=== PATIENT | female | born 1985 | race Caucasian/White ===

== ENCOUNTER 2019-10-01 07:53 | Observation (INO) | payer OTHER ==
[2019-09-30 14:38] LABS: BASOPHIL % 0.7 % (0-2); PLATELET COUNT 358 x10^3mcL (130-400); RED CELL DISTRIBUTION WIDTH 12.6 % (11.5-14.5)
[2019-09-30 14:57] LABS: CALCIUM 9.1 mg/dL (8.5-10.1); CHLORIDE SERUM 103 mmol/L (98-107); CREATININE SERUM 0.6 mg/dL (0.6-1.0); GFR1 > 60 mL/min; GLUCOSE SERUM 87 mg/dL (74-106); POTASSIUM SERUM 4.6 mmol/L (3.5-5.1); SODIUM SERUM 140 mmol/L (136-145)
[2019-09-30 15:05] LABS: CARBON DIOXIDE 27.3 mmol/L (21-32)
[~2019-10-01] VITALS: Ht 170.2 cm; Wt 81.6 kg
[2019-10-01 09:00] VITALS: BP 117/72
[2019-10-01 16:38] VITALS: BP 131/77
[2019-10-01 20:00] VITALS: BP 118/75
[2019-10-02 06:47] VITALS: BP 84/51; BP 86/47
[2019-10-02 08:50] VITALS: BP 125/83
[2019-10-02 11:15] VITALS: BP 111/78
[2019-10-02 16:10] LABS: UA SPECIFIC GRAVITY <=1.005 (1.005-1.035); microscopic required? YES; urine erythrocyte 3+ (NEGATIVE)
[2019-10-02 16:26] VITALS: BP 102/66
[2019-10-02 17:11] VITALS: BP 102/66
== END 2019-10-02 18:31 | disposition home or self-care (01) ==
LOC: DS 07:53 → OR 09:30 → DS 09:30 → MU 10:04
PROVIDERS: ADMIT Obstetrics & Gynecology
DX: R10.12 Left upper quadrant pain (principal); N80.9 Endometriosis, unspecified; N83.8 Other noninflammatory disorders of ovary, fallopian tube and broad ligament
CPT/HCPCS: C1758; G0378; J0690; J1170; J1885; J2250; J2270; J2405; J3010; J3490; J7120; Q0092